=== PATIENT | female | born 1940 | race Caucasian/White ===

== ENCOUNTER 2021-10-20 12:03 | Inpatient (IN) | payer OTHER, MEDICAID ==
[~2021-10-20] VITALS: Ht 165.1 cm; Wt 74.8 kg
[2021-10-20 12:05] VITALS: BP 94/49
[2021-10-20] MEDS ORDERED: MIDODRINE 5 MG TAB PO SCH (12:35)
--- NOTE | 2021-10-20 12:43 | NUR ---
LAB AT PT BEDSIDE
--- NOTE | 2021-10-20 12:44 | NUR ---
81 Y/O FEMALE BIBA FROM DIALYSIS CENTER C/O SYNCOPAL EPISODE. PER FACILITY, THEY TOOK OFF 1L OFF DURING DIALYSIS AND PT WAS SITTING IN CHAIR WHEN PT HAD SYNCOPAL EPISODE. DENIES INJURY/TRUAMA. PT C/O HEAD AND NECK PAIN. PT REPORTS FEELING WEEK XSATURDAY. PT HAS SHUNT L LOWER ARM. PT DENIES CHEST PAIN, SOB. PT DENIES FEVER OR CHILLS. PT IS ALERT AND ORIENTED X4. PMH:ESRD- DIALYSIS MWF,ANEMIA, HYPOTENSION NKDA
[2021-10-20 13:00] LABS: BASOPHILS # (AUTO) 0.1 K/uL (0.00-0.22); BASOPHILS % (AUTO) 0.8 % (0.0-2.0); EOSINOPHILS # (AUTO) 0.1 K/uL (0-0.4); HEMATOCRIT 35.8 % (36-48); HEMOGLOBIN 11.6 g/dL (12.0-16.0); LYMPHOCYTES # (AUTO) 0.8 K/uL (2.5-16.5); LYMPHOCYTES % (AUTO) 12.4 % (20.5-51.1); MEAN CORPUSCULAR HEMOGLOBIN 30 pg (27-31); MEAN CORPUSCULAR HGB CONC 33 g/dL (33-37); MEAN CORPUSCULAR VOLUME 93.3 fL (80-94); MONOCYTES # (AUTO) 0.3 K/uL (0.8-1.0); MONOCYTES % (AUTO) 4.9 % (1.7-9.3); NEUTROPHILS # (AUTO) 4.9 K/uL (1.8-7.7); NEUTROPHILS % (AUTO) 79.9 % (42.2-75.2); PLATELET COUNT (AUTO) 179 K/uL (140-450); RED BLOOD CELL COUNT(AUTO) 3.83 MIL/uL (4.20-5.40); RED CELL DISTRIBUTION WIDTH 15.9 % (11.6-13.7); WHITE BLOOD COUNT (AUTO) 6.2 K/uL (4.8-10.8)
[2021-10-20 14:35] LABS: ANION GAP 12.9 (8-16); CARBON DIOXIDE 31.3 mmol/L (21-32); CHLORIDE 97 mmol/L (98-107); GLUCOSE 122 mg/dL (74-106); POTASSIUM 4.2 mmol/L (3.5-5.1); SODIUM SERUM 137 mmol/L (136-145); TOTAL BILIRUBIN 0.5 mg/dL (0.0-1.0); UREA NITROGEN, BLOOD 33 mg/dL (7-18)
[2021-10-20 14:36] LABS: ALBUMIN 3.6 g/dL (3.4-5.0); ASPARTATE AMINOTRANSFERASE 24 U/L (15-37)
--- NOTE | 2021-10-20 14:45 | NUR ---
Patient appears to be resting comfortably in bed. Vital Signs within normal limits. Respirations even and unlabored.
--- NOTE | 2021-10-20 15:29 | NUR ---
LIZET RAPHAEL WALKED TO LAB
[2021-10-20 15:30] LABS: CREATININE 5.6 mg/dL (0.6-1.3)
--- NOTE | 2021-10-20 15:42 | NUR ---
PT TAKEN TO CT VIA DAMARIS
--- NOTE | 2021-10-20 17:24 | NUR ---
ATTEMPTED TO DO MED REC FOR PT. PT'S DAUGHTER WENT HOME AND WILL RETURN WITH MEDICATION LIST.
[2021-10-20] MEDS ORDERED: KEP500 PO (17:47)
[2021-10-20] MEDS ORDERED: SEVE800T6 PO (17:49)
[2021-10-20] MEDS ORDERED: SUCR500C PO (17:50)
[2021-10-20] MEDS ORDERED: GABA300C PO (17:51)
[2021-10-20] MEDS ORDERED: CARV3.12 PO (17:52)
[2021-10-20] MEDS ORDERED: DOCU-299 PO (17:52)
[2021-10-20] MEDS ORDERED: CLON0.2T16 PO (17:54)
[2021-10-20] MEDS ORDERED: APIX2.5 PO (17:54)
--- NOTE | 2021-10-20 18:03 | NUR ---
Patient will be admitted to care of . Admited to TELE . Will go to room 108 B. Belongings list completed. Report to AHMET LANDA.
--- NOTE | 2021-10-20 18:32 | NUR ---
RECEIVED PT FROM ER, GOT REPORT V.S COMPLETED, MRSA SWAB IS DONE
--- NOTE | 2021-10-20 18:49 | NUR ---
ECG SR 68, PT WITH THE DAUGHTER AT BED SIDE HAVING DINNER.[id number]
--- NOTE | 2021-10-20 19:31 | NUR ---
RECEIVED REPORT FROM CORDELL LEO FOR CONTINUITY OF CARE. PATIENT IS STABLE IN BED. ALERT AND ORIENTED X 4 AND BURUNDIAN SPEAKING. ROOM AIR NOT NOTED APPARENT S/SX OF ACUTE DISTRESS. RESPIRATIONS EVEN EVEN AND UNLABORED. IV SITE TO THE RIGHT UPPER ARM INTACT/PATIENT HEP LOCK. SKIN CLEAN AND INTACT. PATIENT IS RENAL DIET. DID NOT FINISHED WITH HER DINNER BUT DID NOT WANT US TO REMOVE THE TRAY OF YET. SIDE RAILS UP X 3. CALL LIGHT WITHIN REACH AND ENCOURAGED TO USE FOR ASSISTANCE AND NEEDS. [email or web address]
[2021-10-20 20:00] VITALS: BP 109/54
--- NOTE | 2021-10-20 21:16 | NUR ---
MD MORALES WAS INFORMED OF NEW ADMISSION. AWAITING FOR FURTHER ORDERS [email or web address]
--- NOTE | 2021-10-20 23:46 | NUR ---
RECEIVED NEW ORDERS FOR PAIN MANAGEMENT FOR PATIENT. PATIENT IS IN BED AWAKE SPEAKING WITH HER ROOMMATE. NO NOTED SEIZURE ACTIVITY. SIDE RAILS UP X 2. PATIENT WAS ABLE TO MOVE WITH OUT ASSISTANCE FOR COMFORT. NURSING PUT IN THE ORDERS FOR MILD AND MODERATE PAIN. CALL LIGHT REMAINS IN REACH FOR ASSISTANCE. [email or web address]
[2021-10-20] MEDS ORDERED: ACETAMINOPHEN 325 MG TAB PO PRN (23:50)
[2021-10-20] MEDS ORDERED: HYDROcodone/APAP 5/325 MG 1 TAB TAB PO PRN (23:50)
[2021-10-21] VITALS: BP 97/34
--- NOTE | 2021-10-21 01:31 | NUR ---
PATIENT IN BED ASLEEP. NO S/SX OF ACUTE PAIN/DISCOMFORT. NO S/SX OF ACUTE RESPIRATORY DISTRESS. NOTED BREATHING WAS EVEN AND UNLABORED. SIDE RAILS UP X 2 FOR ADJUSTMENTS AND SAFETY. CALL LIGHT WITHIN REACH FOR ASSISTANCE. [email or web address]
--- NOTE | 2021-10-21 03:00 | NUR ---
NURSING OBSERVED PATIENT AMBULATING WITH AN UNSTEADY GAIT OUT OF THE RESTROOM. PATIENT'S GAIT WAS UNSTEADY BECAUSE SHE USED HER GOWN A BARRIER FROM HER FEET TO THE FLOOR. PATIENT WAS ABLE O URINATE WITHOUT INCIDENT. PATIENT WAS REMINDED TO USE THE CALL LIGHT IN THE RESTROOM AND AT BEDSIDE. NURSING GAVE SLIP LESS SOX AND ASSISTED BACK TO BED WITHOUT INCIDENT. PATIENT COMPLAINED HER IV ON THE RIGHT UPPER ARM WAS PAINFUL BECAUSE IT KEEPS SNAGGING ON THE GOWN. NURSING SECURED THE IV. IV STILL CLEAN AND PATENT. BED WAS LOWERED TO THE LOWEST LEVEL WITH SIDE RAILS X 2 FOR ADJUSTMENTS. [email or web address]
[2021-10-21 04:00] VITALS: BP 99/41
--- NOTE | 2021-10-21 07:15 | NUR ---
ENDORSED PATIENT TO CORDELL LEO FOR CONTINUITY OF CARE. PATIENT IS CURRENTLY STABLE. [email or web address]
--- NOTE | 2021-10-21 07:25 | NUR ---
GOT REPORT FROM NIGHT NURSE , PT IN BED IN SUPINE POSITION, SEEMS TO SAY SOME WORDS BUT NOT UNDERSTANDABLE.[id number]
[2021-10-21 08:00] VITALS: BP_SYST 91; BP_SYST 99; BP_DIAS 41; BP_DIAS 58
--- NOTE | 2021-10-21 08:49 | NUR ---
PATIENT HAS BEEN SCREENED AND CATEGORIZED MODERATE NUTRITION RISK. PATIENT WILL BE SEEN WITHIN 3-5 [address]ION. [address]
[2021-10-21] MEDS ORDERED: POTASSIUM CHLORIDE 10 MEQ TABER PO PRN (09:20)
[2021-10-21] MEDS ORDERED: MORPHINE SULFATE 2 MG/ML SYR IVP PRN (09:20)
[2021-10-21] MEDS ORDERED: ONDANSETRON 4 MG/2 ML VIAL IM/IVP PRN (09:20)
[2021-10-21] MEDS ORDERED: DOCUSATE SODIUM 100 MG GELCAP PO PRN (09:20)
[2021-10-21] MEDS ORDERED: MAG SULF 2000 MG/WATER PREMIX 50 ML IV PRN (09:20)
[2021-10-21] MEDS ORDERED: MECLIZINE 25 MG TAB PO PRN (09:20)
[2021-10-21] MEDS ORDERED: LORazepam 2 MG/ML VIAL IM/IVP PRN (09:20)
[2021-10-21] MEDS ORDERED: ACETAMINOPHEN 325 MG TAB PO PRN (09:20)
[2021-10-21] MEDS ORDERED: HYDROcodone/APAP 5/325 MG 1 TAB TAB PO PRN (09:20)
[2021-10-21] MEDS ORDERED: ZOLPIDEM 5 MG TAB PO PRN (09:20)
[2021-10-21 09:24] LABS: BASOPHILS % (AUTO) 0.4 % (0.0-2.0); EOSINOPHILS # (AUTO) 0.2 K/uL (0-0.4); EOSINOPHILS % (AUTO) 3.3 % (0.0-4.0); HEMATOCRIT 34.5 % (36-48); HEMOGLOBIN 11.1 g/dL (12.0-16.0); LYMPHOCYTES # (AUTO) 1.5 K/uL (2.5-16.5); LYMPHOCYTES % (AUTO) 28.6 % (20.5-51.1); MEAN CORPUSCULAR HEMOGLOBIN 30 pg (27-31); MEAN CORPUSCULAR HGB CONC 32 g/dL (33-37); MEAN CORPUSCULAR VOLUME 93.8 fL (80-94); MONOCYTES # (AUTO) 0.4 K/uL (0.8-1.0); MONOCYTES % (AUTO) 7.9 % (1.7-9.3); NEUTROPHILS # (AUTO) 3.2 K/uL (1.8-7.7); NEUTROPHILS % (AUTO) 59.8 % (42.2-75.2); PLATELET COUNT (AUTO) 189 K/uL (140-450); RED BLOOD CELL COUNT(AUTO) 3.68 MIL/uL (4.20-5.40); RED CELL DISTRIBUTION WIDTH 15.9 % (11.6-13.7); WHITE BLOOD COUNT (AUTO) 5.4 K/uL (4.8-10.8)
[2021-10-21 09:27] LABS: ANION GAP 11.9 (8-16); CHLORIDE 99 mmol/L (98-107); GLUCOSE 88 mg/dL (74-106); POTASSIUM 4.9 mmol/L (3.5-5.1); SODIUM SERUM 137 mmol/L (136-145); UREA NITROGEN, BLOOD 49 mg/dL (7-18)
[2021-10-21 09:44] LABS: CREATININE 8.6 mg/dL (0.6-1.3)
[2021-10-21 10:25] LABS: PROTHROMBIN TIME 10.9 secs (10.8-13.4)
[2021-10-21 10:27] LABS: CHOL/HDL RATIO 3.2 (1-4.5); THYROID STIMULATING HORMONE 2.98 uIU/mL (0.34-3.74)
[2021-10-21] MEDS ORDERED: SUMAtriptan succinate 25 MG TAB PO SCH (12:00)
--- NOTE | 2021-10-21 12:00 | NUR ---
DC PLANNING PATIENT IS AN 81-YEAR-OLD FEMALE ADMITTED IN [facility]/ED ON 10/20/2021 DUE TO COMPLAINTS OF SYNCOPAL EPISODE OF PERSISTENT WEAKNESS AND LETHARGY. PATIENT ALSO COMPLAINT OF HEAD AND NECK PAIN. PATIENT HAS MEDICAL HX. OF ESRD ON DIALYSIS (M,W,F) AND HYPOTENSION.(PATIENT IS KHMER SPEAKING ONLY). SW MET WITH PATIENT AND DAUGHTER SANJUANIAT AT BEDSIDE TO DISCUSS AND GATHER COLLATERAL INFORMATION. PATIENT WAS AWAKE AND ALERT ABLE TO INFORM SW ABOUT HER CURRENT LIVING SITUATION. PER PATIENT SHE LIVES AT HOME WITH HER SON JP ROYAL, DAUGHTER IN LAW AND TWO GRANDCHILDREN. PER PATIENT SHE GETS ASSISTED BY HER DAUGHTER IN LAW'S MOTHER WHO COMES AND SEE HER DAILY WHEN EVERY ONE ELSE IS AT WORK. PER PATIENT SHE HAS FAMILY SUPPORT FROM ALL HER CHILDREN AND THEY ALTERNATE TO COME ANS ASSIST HER AND VISIT HER. PATIENT REPORTED THAT SHE HAS NO ADVANCE DIRECTIVES AND WAS NOT INTERESTED ON GETTING A.D. INFORMATION FORMS PROVIDED BY SW. PATIENT STATED THAT SHE HAS HER SON JP HIS EMERGENCY CONTACT AND HE CAN BE HER MEDICAL DECISION MAKER WHEN SHE IS UNABLE TO MAKE HER OWN DECISIONS. PER PATIENT SHE HAS NO ISSUES TAKING OR GETTING HER MEDICATIONS, SHE GETS THEM SEND FROM [facility] TO HER HOUSE AND THEN HER FAMILY GIVES THEM TO HER DAILY. PATIENT REPORTED HAVING A WALKER, A WHEELCHAIR , AN SHOWER CHAIR HER DME. PER PATIENT SHE IS ALSO GETTING DIALYSIS DANIEL SHEIKH FR, AT [facility]. PATIENT STATED THAT WHEN SHE WILL BE DC FROM [facility] SHE WILL BE QUALITY TESTER BY HER SON OR ONE OF HER DAUGHTERS TO TAKE HER BACK HOME. PATIENT'S DAUGHTERS REPORTED THAT SHE WAS JUST VISITING PATIENT AND THAT SHE WILL BE TALKING TO HER BROTHER ABOUT PATIENT AND HER CARE AND SEE IF THEY WANTED TO MAKE SOME CHANGES. SW INFORM PATIENT AND DAUGHTER ABOUT THE IMPORTANCE OF MAKING A FOLLOW UP APPOINTMENT FOR PATIENT AFTER HER DISCHARGE PATIENT AND DAUGHTER AGREED TO DO IT. SW WILL FOLLOW UP NEEDED.
--- NOTE | 2021-10-21 12:44 | NUR ---
DC PLANNING: THE PATIENT WAS DIAZ FROM HER DIALYSIS CENTER WITH C/O SYNCOPAL EPISODE WITHOUT FALL. H/O ESRD AND HYPOTENSION, B/P IN ER WAS 96/60, GIVEN MIDODRINE. PATIENT STATES SHE'S HAD DIZZINESS AND GENERAL WEAKNESS FOR SEVERAL DAYS PRIOR TO SYNCOPAL EPISODE. BNP 468, ORDERS FOR NEURO AND NEPHRO CONSULTS. CAROTID US NEGATIVE SIGNIFICANT STENOSIS, NEUROLOGIST RECOMMENDS STARTING MIDODRINE. P.T. EVAL DONE, PATIENT ABLE TO AMBULATE WITH STAND BY ASSIST. DARELL SPOKE WITH THE PATIENT AT BEDSIDE AND CONFIRMED HER ADDRESS AND PHONE NUMBER. SHE LIVES IN A SINGLE STORY HOUSE WITH HER SON, DAUGHTER IN LAW AND GRANDCHILDREN. SHE HAS DME OF A FWW, 4 WW, WC, 3 IN 1 AND SHOWER BENCH. SHE AMBULATES VERY LITTLE NORMALLY AND STAYS IN HER ROOM MOST OF THE DAY WHEN HER FAMILY IS WORKING. STATES THAT A CAREGIVER COMES IN THE MORNING TO HELP HER GET UP AND LEAVE SOME FOOD FOR HER, UNCLEAR IF SHE'S A FRIEND OR BEING PAID TO ASSIST PATIENT. SHE GOES TO DIALYSIS AT [facility] WITH DR RODERICK Garvey,W,F AT 0800. THE PATIENT STATES THAT SHE HAS TRANSPORT BUT WAS NOT CLEAR WHAT TRANSPORT OR HOW IT WAS ARRANGED. SHE HAS NOT HAD HOME HEALTH IN THE PAST AND IS INDEPENDENT WITH MOST ACTIVITIES INCLUDING ADL'S AND NEEDS A LITTLE HELP GETTING INTO THE SHOWER. DARELL LEFT A MESSAGE FOR HER SON JP ASKING TO SPEAK WITH HIM TO GET MORE DETAILS ABOUT HER CARE AT HOME. PATIENT TO DC HOME WITH FAMILY WHEN CLINICALLY STABLE, DARELL WILL FOLLOW. Addendum: 10/22/21 at 0856 by Yenni Brantley CM DC PLANNING: CM SPOKE WITH PATIENT AT BEDSIDE, PRESENTED THE IMPORTANT MESSAGE FROM MEDICARE, PATIENT SIGNED IT AND COPY WAS GIVEN TO HER. ALSO ENDORSED TO THE PATIENT THAT HOME HEALTH HAS BEEN ORDERED, SHE HAS NO PREFERENCE FOR AGENCY SO REFERRAL WAS SENT TO [facility]. DARELL SPOKE WITH KIN AT [facility] WHO CONFIRMED THAT THEY WILL SEE THE PATIENT, CM ENDORSED THAT PATIENT WILL DC TODAY. CM WILL FOLLOW.
[2021-10-21 12:46] VITALS: BP 148/77
--- NOTE | 2021-10-21 12:59 | NUR ---
GIVEN WORM PACK FOR THE NECK, PT SITTING ON THE BED AND ENJOYING HER LUNCH. SINCE SHE IS TAKING NOW OTHER MED FOR HER HEADACHE AND MUSCLE RELAXER, SHE WANT TO HOLD THE TYLENOL SHE REQUESTED [id number]
[2021-10-21] MEDS: CYCLOBENZAPRINE 10 MG TAB PO SCH ×2 (13:04→17:27)
[2021-10-21 16:00] VITALS: BP 99/71
--- NOTE | 2021-10-21 19:10 | NUR ---
ORTHOSTATIC BP LAYING 111\54 STANDING 122 79 , SITTING 119 61 [id number]
[2021-10-21 20:00] VITALS: BP 121/61
--- NOTE | 2021-10-21 22:00 | NUR ---
C/O HUANG - WILL MEDICATE .
[2021-10-21] MEDS: SUMAtriptan succinate 25 MG TAB PO PRN (22:05)
--- NOTE | 2021-10-21 22:23 | NUR ---
PT REQUESTING SHOWER AVTAR AM - REFERRED TO DR MAGALLON - BUT PER DR Madelyn MAGALLON LET THE AM DOCTOR WILL DECIDE IT AVTAR AM .
[2021-10-22] VITALS: BP 118/60
--- NOTE | 2021-10-22 | NUR ---
ROUNDS , PER PT THE HUANG IS ALMOST GONE . WILL CONT. TO MONITOR .
[2021-10-22 04:00] VITALS: BP 121/58
--- NOTE | 2021-10-22 04:00 | NUR ---
ROUNDS , PT IS SB ON TELE MONITOR - PT NO COMPLAIN MADE , WILL CONT. TO MONITOR
--- NOTE | 2021-10-22 06:00 | NUR ---
MADE , ROUNDS , PT IS SLEEPING , BUT EASILY TO AWAKE BY SOUNDS - ON TELE MONITOR , WILL CONT. TO MONITOR .
--- NOTE | 2021-10-22 07:40 | NUR ---
RECEIVED REPORT FROM PERCH MACHINE INSPECTOR NURSE. PATIENT AMBULATED TO BATHROOM AND BACK TO BED. NO DISTRESS NOTED. DENIES ANY HEADACHES, CHEST PAIN. AAOX3, CALM, COOPERATIVE, APPROPRIATE AFFECT. DENIES ANY PAIN. IV SITE INTACT, PATENT, AND ON SALINE LOCK. REVIEWED PLAN OF CARE WITH PATIENT. VERBALIZED UNDERSTANDING. SAFETY MEASURES IN PLACE, CALL LIGHT WITHIN REACH. WILL CONTINUE TO MONITOR.
--- NOTE | 2021-10-22 07:49 | NUR ---
INFORMED DIALYSIS NURSE - FOR DIALYSIS TODAY - W/ CONSENT - GOT THRU TEL . INTERPRETATOR .
[2021-10-22 08:00] VITALS: BP 122/81
[2021-10-22] MEDS ORDERED: CYCL-657 PO (08:54)
[2021-10-22] MEDS ORDERED: IMI25 PO (08:54)
[2021-10-22] MEDS ORDERED: PRO5 PO (08:54)
[2021-10-22] MEDS ORDERED: MECL-231 PO (08:54)
[2021-10-22 09:07] LABS: T4 (THYROXINE) 7.5 ug/dL (4.5-12.0)
[2021-10-22] MEDS: CYCLOBENZAPRINE 10 MG TAB PO SCH ×2 (09:43→13:33)
--- NOTE | 2021-10-22 09:44 | NUR ---
SCHEDULED MEDICATIONS DUE GIVEN. WILL CONTINUE TO MONITOR.
--- NOTE | 2021-10-22 10:30 | NUR ---
HD NURSE AT BEDSIDE STARTING DIALYSIS. WILL CONTINUE TO MONITOR.
[2021-10-22 12:00] VITALS: BP 111/68
--- NOTE | 2021-10-22 12:36 | NUR ---
PHYSICAL THERAPY CO-SIGN The Physical Therapy Progress Notes documented by Vending Machine Servicer have been reviewed. Reviewed/Co-Signed by: Dawn Lima Documentation Done by: JULIEN LEWIS PTA Addendum: 10/22/21 at 1236 by Dawn Lima PT Amended: Links added.
--- NOTE | 2021-10-22 13:34 | NUR ---
SCHEDULED MEDICATIONS DUE GIVEN. WILL CONTINUE TO MONITOR.
[2021-10-22] MEDS: SUMAtriptan succinate 25 MG TAB PO PRN (14:38)
--- NOTE | 2021-10-22 14:42 | NUR ---
COMPLAINS OF HEADACHE, SUMATRIPTAN PRN GIVEN AT THIS TIME. WILL CONTINUE TO MONITOR.
--- NOTE | 2021-10-22 15:40 | NUR ---
DISCHARGE INSTRUCTIONS PROVIDED TO PATIENT/SON AT BEDSIDE IN PREFERRED LANGUAGE OF ARABIC. PATIENT PREFERS SON TO TRANSLATE. IV SITE REMOVED WITH MINIMAL BLOOD AND LUMEN COMPLETELY INTACT. INSTRUCTIONS ON FOLLOW-UP WITH PCP, NEW/CHANGED MEDICATION REGIMEN AND SIDE EFFECTS, AND DISEASE/MANAGEMENT OF ORTHOSTATIC HYPOTENSION PROVIDED. ANSWERED ALL OF PATIENT/SON'S QUESTIONS. PATIENT GETTING DRESSED AND WILL ESCROTED PATIENT DOWN TO LOBBY VIA WHEELCHAIR.
== END 2021-10-22 15:50 | disposition home health service (06) | DRG 312 ==
LOC: MED 12:03 → MTU 15:26
PROC: 5A1D70Z Performance of Urinary Filtration, Intermittent, Less than 6 Hours Per Day (ICD-10-PCS; principal; 2021-10-22)
DX: I95.1 Orthostatic hypotension (principal); N18.6 End stage renal disease; G93.40 Encephalopathy, unspecified; I12.0 Hypertensive chronic kidney disease with stage 5 chronic kidney disease or end stage renal disease; M10.9 Gout, unspecified; Z20.822 Contact with and (suspected) exposure to COVID-19; D64.9 Anemia, unspecified; G43.909 Migraine, unspecified, not intractable, without status migrainosus; E11.65 Type 2 diabetes mellitus with hyperglycemia; E11.22 Type 2 diabetes mellitus with diabetic chronic kidney disease; I48.0 Paroxysmal atrial fibrillation; Z90.49 Acquired absence of other specified parts of digestive tract; Z99.2 Dependence on renal dialysis; Z79.01 Long term (current) use of anticoagulants; Z79.899 Other long term (current) drug therapy; Z68.27 Body mass index [BMI] 27.0-27.9, adult
CPT/HCPCS: 36415; 70450; 71045; 72125; 80048; 80053; 82550; 83036; 83690; 83880; 84134; 84436; 84443; 84484; 85025; 85610; 85730; 87081; 93005; 93880; 97110; 97112; 97116; 97163-GP; 97530; 99285; J1644; Q0092

== ENCOUNTER 2022-01-26 12:28 | Emergency (ER) | payer OTHER, MEDICAID ==
[~2022-01-26] VITALS: Ht 167.6 cm; Wt 77.6 kg
[~2022-01-26 12:28] MED LIST: APIX2.5 PO; CARV3.12 PO; CLON0.2T16 PO; CYCL-657 PO; DOCU-299 PO; GABA300C PO; IMI25 PO; KEP500 PO; MECL-231 PO; PRO5 PO; SEVE800T6 PO; SUCR500C PO
[2022-01-26 12:33] VITALS: BP 107/52
--- NOTE | 2022-01-26 12:34 | NUR ---
Patient BIBA to bed 5.
--- NOTE | 2022-01-26 13:00 | NUR ---
Dr. Leong evaluating patient at bedside.
[2022-01-26] MEDS ORDERED: NACL 0.9% 250 ML IV ONE (13:05)
--- NOTE | 2022-01-26 13:48 | NUR ---
lab at bedside.
--- NOTE | 2022-01-26 14:00 | NUR ---
Pt ate 75% of her lunch
[2022-01-26 14:02] LABS: BASOPHILS % (AUTO) 0.5 % (0.0-2.0); EOSINOPHILS # (AUTO) 0.1 K/uL (0-0.4); EOSINOPHILS % (AUTO) 1.4 % (0.0-4.0); HEMATOCRIT 35.4 % (36-48); HEMOGLOBIN 11.7 g/dL (12.0-16.0); LYMPHOCYTES # (AUTO) 0.9 K/uL (2.5-16.5); LYMPHOCYTES % (AUTO) 14.5 % (20.5-51.1); MEAN CORPUSCULAR HEMOGLOBIN 31 pg (27-31); MEAN CORPUSCULAR HGB CONC 33 g/dL (33-37); MEAN CORPUSCULAR VOLUME 94.8 fL (80-94); MONOCYTES # (AUTO) 0.3 K/uL (0.8-1.0); MONOCYTES % (AUTO) 5.1 % (1.7-9.3); NEUTROPHILS # (AUTO) 4.8 K/uL (1.8-7.7); NEUTROPHILS % (AUTO) 78.5 % (42.2-75.2); PLATELET COUNT (AUTO) 187 K/uL (140-450); RED BLOOD CELL COUNT(AUTO) 3.73 MIL/uL (4.20-5.40); RED CELL DISTRIBUTION WIDTH 13.9 % (11.6-13.7); WHITE BLOOD COUNT (AUTO) 6.1 K/uL (4.8-10.8)
[2022-01-26 14:18] LABS: PROTHROMBIN TIME 10.6 secs (10.8-13.4)
[2022-01-26 14:24] LABS: ALBUMIN 3.7 g/dL (3.4-5.0); ANION GAP 16.1 (8-16); ASPARTATE AMINOTRANSFERASE 17 U/L (15-37); CARBON DIOXIDE 29.5 mmol/L (21-32); CHLORIDE 96 mmol/L (98-107); GLUCOSE 100 mg/dL (74-106); POTASSIUM 4.6 mmol/L (3.5-5.1); SODIUM SERUM 137 mmol/L (136-145); TOTAL BILIRUBIN 0.3 mg/dL (0.0-1.0); UREA NITROGEN, BLOOD 40 mg/dL (7-18)
[2022-01-26 14:32] LABS: CREATININE 6.4 mg/dL (0.6-1.3)
[2022-01-26 16:00] VITALS: BP 116/56
--- NOTE | 2022-01-26 16:02 | NUR ---
Patient discharged with v/s stable. Written and verbal after care instructions given and explained. Patient verbalized understanding. Ambulatory with son to car. All questions addressed prior to discharge. Advised to follow up with PMD.
== END 2022-01-26 16:02 | disposition home or self-care (01) ==
LOC: MED 12:28
DX: I48.0 Paroxysmal atrial fibrillation (principal); Z20.822 Contact with and (suspected) exposure to COVID-19; I10 Essential (primary) hypertension; N18.6 End stage renal disease; I25.10 Atherosclerotic heart disease of native coronary artery without angina pectoris; K21.9 Gastro-esophageal reflux disease without esophagitis; E78.5 Hyperlipidemia, unspecified; Z90.49 Acquired absence of other specified parts of digestive tract; Z98.890 Other specified postprocedural states
CPT/HCPCS: 36415; 71045; 80053; 83880; 84484; 85025; 85610; 85730; 87426; 93005; 96360; 96361; 99285; J7030; Q0092